=== PATIENT | female | born 1945 | race Caucasian/White ===

== ENCOUNTER → 2023-05-14 12:05 | Outpatient (CLI) | payer MEDICARE, SELFPAY ==
--- NOTE | 2023-05-14 12:14 | DI.ECHO.S_ITS ---
[facility] +---------+ : : [address] : [place] : : : : [id number] : : : : Phone: [phone]---------+ Echocardiogram Report + + :Name: COCO BUCK Study Date: 05/14/2023 Height: 63 in : :[facility] ReadingLocation: Weight: 160 lb : : Gender: Female BSA: 1.8 m2 : :: 1945 Age: 78 yrs BP: 146/80 mmHg: :Reason For Study: ESSENTIAL HYPERTENSION : :Ordering Physician: ELY, : :BRIANNA Performed By: Gwyn Ozuna : :Referring: BRIANNA GRAVES : + + Interpretation Summary Normal sinus rhythm. Normal LV size and wall thickness. Normal wall motion and LV systolic function. Ejection fraction 60-65%. Stage I diastolic dysfunction. Normal chamber sizes. No significant valvular abnormalities. Compared to prior study 05/09/2016 BP is better controlled. Otherwise no changes have occurred. Procedure: A two-dimensional transthoracic echocardiogram with color flow and Doppler was performed. The study quality was technically adequate. Comparison is made with the echocardiogram of 05/09/2016. The patient was in normal sinus rhythm during the exam. The heart rate ranged between 61-73 bpm during the study. Left Ventricle: The left ventricle is normal in size and wall thickness. The ejection fraction is estimated to be 60-65%. Right Ventricle: The right ventricle is normal in size and function. The right ventricular systolic function is normal. Atria: The left atrial size is normal. Right atrial size is normal. The interatrial septum grossly appears intact with no obvious evidence for an atrial septal defect. Mitral Valve: The mitral valve is normal in structure and function. CALCIFICATION ON AMVL. There is no mitral valve stenosis. There is mild mitral regurgitation. Aortic Valve: The aortic valve is trileaflet. There is no aortic valve stenosis. No aortic regurgitation is present. Tricuspid Valve: The tricuspid valve is normal in structure and function. There is no tricuspid stenosis. There is mild tricuspid regurgitation. The right ventricular systolic pressure is estimated to be at least 27 mmHg based on an estimated right atrial pressure of 3 mm Hg. Pulmonic Valve: The pulmonic valve is not well visualized. There is no pulmonic valvular stenosis. There is a trace or physiologic amount of pulmonic regurgitation. Great Vessels: The aortic root is normal size. The dimensions of the ascending aorta are normal. The IVC is of normal diameter and collapses greater than 50% with a sniff. This suggests a low right atrial pressure of 3 mm Hg. Pericardium/ Pleura There is no pericardial effusion. There is no pleural effusion. MMode/2D Measurements & Calculations LVIDd: 4.0 cm LVOT diam: 2.0 cm LVIDs: 2.7 cm Ao root diam: 2.7 cm FS: 34.4 % asc Aorta Diam: 3.0 cm IVSd: 0.78 cm Ao Arch Diam (Prox Trans): 2.4 cm LVPWd: 0.93 cm LV lin. diameter/BSA (cm/m^2): 2.3 LV sys. diameter/BSA (cm/m^2): 1.5 LA A2 area: 14.6 cm2 RA long axis: 3.6 cm LA A4 area: 15.8 cm2 RA area: 9.1 cm2 LA length (vol): 5.2 cm RA vol: 19.6 ml LA vol: 37.7 ml RA : 11.2 ml/m2 LA vol index: 21.4 ml/m2 IVC diam: 1.5 cm RVD1 (basal): 3.1 cm RVD2 (mid): 3.1 cm TAPSE: 2.4 cm Doppler Measurements & Calculations Ao V2 max: 153.1 cm/sec LVOT Max Travis: 119.7 cm/sec Ao V2 mean: 110.7 cm/sec LV V1 max P.7 mmHg Ao max P.4 mmHg LV V1 VTI: 29.7 cm Ao mean P.4 mmHg CORY(I,D): 2.3 cm2 Ao V2 VTI: 38.3 cm CORY(V,D): 2.4 cm2 sev ratio: 0.77 CORY indexed to BSA (cm^2/m^2): 1.3 MV E max travis: 74.7 cm/sec TR max travis: 245.4 cm/sec MV A max travis: 84.5 cm/sec TR max P.1 mmHg MV E/A: 0.88 PA V2 max: 111.3 cm/sec Med Peak E' Travis: 7.3 cm/sec PA V2 mean: 71.4 cm/sec E/E' med: 10.2 PA mean P.3 mmHg Lat Peak E' Travis: 8.8 cm/sec PA pr(Accel): 34.5 mmHg E/E' lat: 8.5 E/e' average: 9.3 MV dec time: 0.19 sec SV(LVOT): 89.9 ml Electronically signed by: Leidy Coleman M.D. on [place] Physician:05/14/2023 03:47 PM
== END ==
PROVIDERS: PCP Nurse Practitioner Family; Referring Provider Internal Medicine Cardiovascular Disease; Visit Provider Internal Medicine Cardiovascular Disease
DX: I25.118 Atherosclerotic heart disease of native coronary artery with other forms of angina pectoris (principal); I08.1 Rheumatic disorders of both mitral and tricuspid valves; I73.9 Peripheral vascular disease, unspecified; I10 Essential (primary) hypertension
CPT/HCPCS: 93306